=== PATIENT | female | born 1945 | race Caucasian/White ===

== ENCOUNTER → 2016-12-01 | Outpatient (CLI) | payer OTHER | LOC: CIMAGING 09:58 | DX: Z12.31 Encounter for screening mammogram for malignant neoplasm of breast (principal); Z80.3 Family history of malignant neoplasm of breast | CPT/HCPCS: G0202 ==

== ENCOUNTER → 2018-01-07 | Outpatient (CLI) | payer OTHER | LOC: CIMAGING 13:36 | PROVIDERS: ATTEND Family Medicine | DX: Z12.31 Encounter for screening mammogram for malignant neoplasm of breast (principal); Z80.3 Family history of malignant neoplasm of breast ==

== ENCOUNTER 2018-05-26 12:12 | Day surgery (SDC) | payer OTHER ==
[2018-05-26] MEDS ORDERED: ceFAZolin 2 GM/DEXTROSE 100 ML IV ONE (12:29)
[2018-05-26] MEDS ORDERED: LR 1,000 ML IV ONE (12:30)
[2018-05-26] MEDS ORDERED: BUPIVACAINE 0.5% 30 ML SDV ONE (13:41)
--- NOTE | 2018-05-26 13:54 | PDHPUP ---
History & Physical Update H&P update statement: This history and physical update is based on an assessment of the patient which was completed after admission or registration (within 24 hours), but prior to the surgery/procedure. H&P update: H&P reviewed & patient examined, no change in patient's condition since H&P completed
[2018-05-26] MEDS ORDERED: fentaNYL 100 MCG/2 ML INJ ONE ×2 (13:59→15:25)
[2018-05-26] MEDS ORDERED: PROPOFOL/EMULSION 500 MG/50 ML BOTTLE IV ONE (14:02)
[2018-05-26] MEDS ORDERED: LIDOCAINE 2% 2 ML INJ ONE (14:03)
[2018-05-26] MEDS ORDERED: MIDAZOLAM 2 MG/2 ML VIAL IVP ONE (14:05)
--- NOTE | 2018-05-26 14:05 | PDANEPAE ---
ANE History of Present Illness right foot bunion ANE Past Medical History - Cardiovascular History Hx Hypertension: No Hx Arrhythmias: No Hx Chest Pain: No Hx Coronary Artery / Peripheral Vascular Disease: No Hx CHF / Valvular Disease: No Hx Palpitations: No Cardiovascular History Comment: Hx of DVT & PE after knee surgery 12/2012. - Pulmonary History Hx COPD: No Hx Asthma/Reactive Airway Disease: Yes Hx Recent Upper Respiratory Infection: No Hx Oxygen in Use at Home: Yes O2 in Use at Home (L/minute): uses 1L with Cpap Hx Sleep Apnea: Yes Sleep Apnea Screening Result - Last Documented: Positive Pulmonary History Comment: asthma. CHERI positive, uses Cpap w/O2 - Neurologic History Hx Cerebrovascular Accident: No Hx Seizures: No Hx Dementia: No Neurologic History Comment: hx of left sided body, mid torso down to toes, numbness - no dx after testing, resolved slowly on it's own - Endocrine History Hx Diabetes: No - Renal History Hx Renal Disorders: No - Liver History Hx Hepatic Disorders: No - Neurological & Psychiatric Hx Hx Neurological and Psychiatric Disorders: Yes Neurological / Psychiatric History Comment: anxiety - Cancer History Hx Cancer: No - Congenital Disorder History Hx Congenital Disorders: No - GI History Hx Gastrointestinal Disorders: Yes Gastrointestinal History Comment: GERD - Other Health History Other Health History: bruises easily. wears glasses for reading - Chronic Pain History Chronic Pain: No - Surgical History Prior Surgeries: pilonidal cyst removal. . trigger thumb fixed, left. knee scope, left ANE Review of Systems Review of systems is: negative Review of Systems: - Exercise capacity METS (RN): 4 METS ANE Patient History - Allergies Allergies/Adverse Reactions: erythromycin base [Erythromycin Base] Allergy (Verified 05/11/18 12:21) GI upset iodine Allergy (Verified 05/11/18 12:21) hospitalized after injection for CT scan latex Allergy (Verified 05/11/18 12:21) rash, itching Sulfa (Sulfonamide Antibiotics) Allergy (Verified 05/11/18 12:21) nausea - Home Medications Home medications: home medication list seen and reviewed Home Medications: Budesonide 180 Mcg INH [Pulmicort 180Mcg Flexhaler] BID 01/18/13 [Last Taken ] Calcium Carb W/Vit D [Calcium Carb W/Vit D 500/200 (OTC)] DAILY 01/18/13 [Last Taken 1 Week Ago ~05/19/18] Citalopram [celeXA 20 MG (RX)] DAILY 01/18/13 [Last Taken 1 Week Ago ~05/19/18] Fexofenadine HCl [Cherise] DAILY 01/18/13 [Last Taken 2 Weeks Ago ~05/12/18] Fluticasone Nasal [Flonase Nasal [place] (RX)] DAILY 01/18/13 [Last Taken 05/25/18 ] Montelukast Sodium [Singulair 10 mg (RX)] DAILY@1800 01/18/13 [Last Taken ] Omeprazole [Prilosec 40 mg] DAILY 01/18/13 [Last Taken 05/25/18] Zolpidem Tartrate [Ambien 5MG (RX)] PRN 01/18/13 [Last Taken 1 Month Ago ~] Albuterol [Proventil Inhaler HFA (*)] PRN 05/11/18 [Last Taken 05/26/18] Aleve PRN 05/11/18 [Last Taken 2 Weeks Ago ~05/12/18] Biotin 05/11/18 [Last Taken 1 Week Ago ~05/19/18] Cinnamon 05/11/18 [Last Taken 1 Week Ago ~05/19/18] Glucosamine Chondroitin Caplet 05/11/18 [Last Taken 1 Week Ago ~05/19/18] Lutein 05/11/18 [Last Taken 1 Week Ago ~05/19/18] Probiotic 05/11/18 [Last Taken 1 Week Ago ~05/19/18] Resveratrol 05/11/18 [Last Taken 1 Week Ago ~05/19/18] Turmeric 05/11/18 [Last Taken 1 Week Ago ~05/19/18] Vitamin C 05/11/18 [Last Taken 1 Week Ago ~05/19/18] - NPO status NPO Since - Liquids (Date): 05/26/18 NPO Since - Liquids (Time): 10:45 NPO Since - Solids (Date): 05/25/18 NPO Since - Solids (Time): 18:00 - Anes Hx Anes Hx: no prior problems - Smoking Hx Smoking Status: Never smoked - Family Anes Hx Family Hx Anesthesia Complications: none ANE Labs/Vital Signs - Vital Signs Blood Pressure: 159/89 Heart Rate: 67 Respiratory Rate: 16 O2 Sat (%): 93 Height: 152.4 cm Weight: 78.925 kg ANE Physical Exam - Airway Neck exam: FROM Mallampati Score: Class 2 Mouth exam: normal dental/mouth exam - Pulmonary Pulmonary: no respiratory distress - Cardiovascular Cardiovascular: regular rate and rhythym - ASA Status ASA Status: III ANE Anesthesia Plan Anesthesia Plan: GA with mask
--- NOTE | 2018-05-26 14:11 | POSTANESTH ---
Post Anesthetic Evaluation Cardiovascular Status: Normal, Stable Respiratory Status: Normal, Stable Level of Consciousness/Mental Status: Can Participate in Eval, Mildly Sleepy, Arousable Pain Control: Adequate, Prn Tx Ordered Nausea/Vomiting Control: Adequate, Prn Tx Ordered Complications Possibly Related to Anesthesia: None Noted
[2018-05-26] MEDS ORDERED: ePHEDrine SULFATE 25 MG/5 ML SYR ONE (14:52)
[2018-05-26] MEDS ORDERED: PROPOFOL 200 MG/20 ML VIAL ONE ×2 (15:09→15:11)
[2018-05-26] MEDS ORDERED: PHENYLEPHRINE HCL 100 MCG/ML SYR ONE (15:11)
[2018-05-26] MEDS ORDERED: DEXAMETHASONE 4 MG/ML VIAL ONE (15:13)
[2018-05-26] MEDS ORDERED: KETOROLAC 30 MG/1 ML SDV ONE (15:44)
[2018-05-26] MEDS ORDERED: ONDANSETRON 4 MG/2 ML VIAL IVP PRN ×2 (15:48→16:06)
[2018-05-26] MEDS ORDERED: ALBUTEROL 3 ML DEYVIAL IH PRN (15:48)
[2018-05-26] MEDS ORDERED: LR 500 ML IV PRN (15:48)
[2018-05-26] MEDS ORDERED: HYDROmorphONE/DILAUDID 2 MG/ML INJ IVP PRN (15:48)
[2018-05-26] MEDS ORDERED: fentaNYL 100 MCG/2 ML INJ IVP PRN (15:48)
[2018-05-26] MEDS ORDERED: oxyCODONE IR 5 MG TAB PO PRN (15:48)
[2018-05-26] MEDS ORDERED: NALOXONE HCL 0.4 MG/ML INJ IVP PRN (15:48)
[2018-05-26] MEDS ORDERED: PROMETHAZINE HCL 25 MG/ML INJ IVP PRN (15:48)
[2018-05-26] MEDS ORDERED: HYDROCODONE/APAP 5/325 TAB PO PRN (15:48)
[2018-05-26] MEDS ORDERED: ACETAMINOPHEN 500 MG TAB PO PRN (15:48)
[2018-05-26] MEDS ORDERED: OXYCODONE/APAP 5/325 TAB PO PRN (16:06)
[2018-05-26] MEDS ORDERED: ONDANSETRON DISINTEGRATING 4 MG TAB PO PRN (16:06)
[2018-05-26 18:20] VITALS: BP 119/77
--- NOTE | 2018-05-27 14:09 | GOP ---
DATE OF OPERATION: 05/26/2018 SURGEON: Cipriano Barrios DPM HOUSING INSPECTOR: None. ANESTHESIA: MAC with local, 40 mL 0.5% Marcaine plain. PREOPERATIVE DIAGNOSIS: 1. Hallux valgus, right foot. 2. 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 4. Metatarsalgia, right foot. 5. Closed dislocation, 2nd metatarsophalangeal joint, right foot. 6. Hammertoe, 2nd digit, right foot. 7. Synovitis, right foot. POSTOPERATIVE DIAGNOSIS: 1. Hallux valgus, right foot. 2. 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 4. Metatarsalgia, right foot. 5. Closed dislocation, 2nd metatarsophalangeal joint, right foot. 6. Hammertoe, 2nd digit, right foot. 7. Synovitis, right foot. PROCEDURE PERFORMED: 1. Bunionectomy, right foot. 2. 1st metatarsal osteotomy with bone graft #2, right foot. 3. Osteotomy of 1st proximal phalanx, right foot. 4. 2nd metatarsal osteotomy, right foot. 5. Hammertoe fusion, 2nd toe, right foot. 6. Arthrocentesis, right foot. FINDINGS: Gross findings consistent with diagnosis. ESTIMATED BLOOD LOSS: Zero. DESCRIPTION OF PROCEDURE: After identification, the patient was brought to the operating room and pl aced on the operating table in the supine position. Following IV sedation, local anesthesia obtained around the patient's right foot utilizing a total of 30 mL 0.5% Marcaine plain. The foot was then s crubbed, prepped, and draped in the usual aseptic manner. A pneumatic ankle tourniquet was placed on the patient's right ankle with ample padding. An Esmarch bandage was utilized to exsanguinate the p atient's right foot and pneumatic ankle tourniquet was inflated. Attention was then directed to the medial aspect of the patient's right foot where a 5 cm linear long itudinal incision was made medial to the 1st metatarsophalangeal joint. This incision was deepened t hrough the subcutaneous tissue to the level of the joint capsule with care being taken to identify an d retract all vital neural and vascular structures. Bleeders were ligated and cauterized as necessar y. Lenticular capsulorrhaphy was performed at the medial aspect of the 1st metatarsophalangeal joint . This lenticular piece of capsule was excised in total and passed from the operative field. Capsul ar structures were reflected dorsally and plantarly, thus exposing the 1st metatarsophalangeal joint at the operative site. A McGlamry elevator was inserted from medial to lateral to within the 1st met atarsophalangeal joint and extended laterally to serve as a lateral ligamentous release. Upon comple tion of this maneuver, the hallux was more easily translated into a more medial and corrected position. Attention was then directed to the 1st metatarsal bone, right foot, where a hjhrpwc-obk-vrnizmt Z-sha ped Scarf osteotomy was performed in the head, neck, and shaft of the 1st metatarsal bone. This oste otomy was performed from medial to lateral with an osteotomy guide. Upon completion of this through- and-through osteotomy, the capital fragment was translated laterally into a more anatomically correct position. Following temporary fixation, 2 x 3.5 headless Arthrex screws were driven obliquely acros s the osteotomy site to serve as stable fixation. At this time, the fixation was evaluated and noted to be extremely stable. Redundant medial bone shelf was excised, remodeled, and replaced within the osteotomy site to serve as a bone graft. All rough edges were then smoothed with a bone bur. At this time, a decision was made to perform an osteotomy in the great toe secondary to malposition o f the great toe. Attention was directed to the base of the 1st proximal phalanx, right foot, through the original skin incision. A medially-based wedge osteotomy was performed in the base of the 1st p roximal phalanx leaving the lateral cortex intact. This wedge of bone was excised in total and passe d from the operative field. Osteotomy site was closed, translating the hallux into a more medial and anatomically correct position. A Nitinol staple was driven across the osteotomy site to serve as st able fixation. At this time, fixation was noted to be extremely stable at the 1st ray and position o f the 1st ray was noted to be anatomic. Incision was flushed with normal sterile saline solution. C apsular structures were reapproximated using 2-0 Vicryl. Subcutaneous tissue reapproximated using 3- 0 Vicryl, and skin reapproximated using 5-0 Vicryl in a running subcuticular suture technique. Attention was then directed to the dorsal aspect of the patient's right foot, where a 4 cm linear riley gitudinal incision was made beginning proximal to the 2nd metatarsophalangeal joint and then extendin g into the 2nd digit. This incision was deepened through the subcutaneous tissue with care being jett en to identify and retract all vital neural and vascular structures. Bleeders were ligated and caute rized as necessary. A linear capsulotomy was performed between the tendons of the extensor digitorum longus and extensor digitorum brevis. The extensor digitorum longus was Z-lengthened and reapproxim ated using 2-0 Vicryl. Capsular structures were reflected medially and laterally, thus exposing the 2nd metatarsophalangeal joint at the operative site. An oblique Didier osteotomy was performed in the head, neck, and shaft from dorsal distal to plantar proximal in the 2nd metatarsal bone. Upon comple tion of this osteotomy, capital fragment was translated proximally, thus exposing the 2nd metatarsoph alangeal joint plantar structures of the operative site. It was noted that the plantar plate structu re was at least 50% torn. Complete resection of the plantar plate was sharply performed exposing the flexor tendon apparatus and there was significant damage to the flexor tendons. These were directly repaired using 2-0 Vicryl. The flexor tendon structures, as well as the plantar plate, were then ga thered with a suture gathering instrument and a horizontal mattress was placed through both the flexo r tendons and plantar plate. These free ends of the tendon were then transferred distally through 2 crossing drill holes from plantar proximal to dorsal distal in the base of the 2nd proximal phalanx. The 2nd metatarsal was then brought back out to anatomic length, which was approximately 2 mm shorte r than it was at the beginning of surgery, and fixated with 2 x 2.0 snap-off screws. Position of the 2nd metatarsal was excellent and anatomic and fixation was stable. The sutures that had been passed through the flexor tendons and plantar plate were passed up through 2 crossing drill holes in the ba se of the proximal phalanx and pulled tight, which served as a repair of the plantar plate structure and transfer of both the plantar plate structure and flexor tendon apparatus to the base of the proxi mal phalanx. These sutures were tied upon themselves serving as stable fixation of these soft tissue structures. The 2nd digit and 2nd metatarsophalangeal joint were in anatomic position at this time. Attention was then directed through the original skin incision to the proximal interphalangeal joint of the 2nd digit. Using a sagittal saw, the head of the proximal phalanx and base of the middle phal anx were excised and passed from the operative field. A Trim-It Arthrex pin was driven from distal t o proximal into the proximal phalanx. This was cut approximately 5 mm proud and this distal portion of the pin was then secured into the middle phalanx. This served as stable fixation at the fusion si te. Position was excellent, fixation was stable. This entire incision was then flushed with normal sterile saline solution. Capsular ligamentous stru ctures were reapproximated using 2-0 Vicryl, subcutaneous tissue reapproximated using 3-0 Vicryl, and skin reapproximated using 5-0 Vicryl in a running subcuticular suture technique. Incision sites wer e then dressed with Steri-Strips, Aldana silk, 4 x 4 gauze, Webril, Yan, Shade bandage. 4 mg dexameth asone was injected into the right foot at the operative site at the conclusion of this procedure. Th e patient was transferred to the postoperative recovery area with vital signs stable and vascular sta tus intact to the right foot. Patient tolerated procedure and anesthesia well. SURGEON: Dr. Cipriano Barrios, ARIAS. HEMOSTASIS: Right pneumatic ankle tourniquet inflated to 250 mmHg for 72 minutes. MATERIALS: 3.5 Arthrex screws, CPR kit from Arthrex, Trim pin from Arthrex. INJECTABLES: 4 mg dexamethasone. CONDITION: Stable. /[id number]/MODL
== END 2018-05-26 17:58 | disposition home or self-care (01) ==
LOC: FSGY 12:12
PROVIDERS: ATTEND Podiatrist
PROC: 0QSQ04Z Reposition Right Toe Phalanx with Internal Fixation Device, Open Approach (ICD-10-PCS; 2018-05-26)
PROC: 0QSN04Z Reposition Right Metatarsal with Internal Fixation Device, Open Approach (ICD-10-PCS; 2018-05-26)
PROC: 0SGP04Z Fusion of Right Toe Phalangeal Joint with Internal Fixation Device, Open Approach (ICD-10-PCS; 2018-05-26)
PROC: 0QSN04Z Reposition Right Metatarsal with Internal Fixation Device, Open Approach (ICD-10-PCS; principal; 2018-05-26 13:45)
DX: M20.11 Hallux valgus (acquired), right foot (principal); Q66.21 Congenital metatarsus primus varus; S93.124A Dislocation of metatarsophalangeal joint of right lesser toe(s), initial encounter; M20.41 Other hammer toe(s) (acquired), right foot; M65.9 Synovitis and tenosynovitis, unspecified; G47.33 Obstructive sleep apnea (adult) (pediatric); J45.909 Unspecified asthma, uncomplicated; E66.9 Obesity, unspecified; K21.9 Gastro-esophageal reflux disease without esophagitis; Z86.718 Personal history of other venous thrombosis and embolism; Z86.711 Personal history of pulmonary embolism; X58.XXXA Exposure to other specified factors, initial encounter
CPT/HCPCS: C1713; J0690; J1100; J1885; J2250; J2370; J2704; J3010

== ENCOUNTER → 2018-08-12 | Outpatient (CLI) | payer OTHER | LOC: FIMAGING 15:50 | PROVIDERS: ATTEND Orthopaedic Surgery | DX: M17.11 Unilateral primary osteoarthritis, right knee (principal) ==

== ENCOUNTER 2018-08-25 06:49 | Observation (INO) | payer OTHER ==
[~2018-08-25 06:49] MED LIST: ROPIVACAINE 0.2% 80 MG, EPINEPHrine 0.2 MG, KETOROLAC TROMETHAMINE 30 MG in SYRINGE 0 ML IU ONE; TRANEXAMIC ACID 3,000 MG in NS (SYRINGE) 50 ML IRR ONE
[2018-08-25] MEDS ORDERED: TRANEXAMIC ACID 3,000 MG/50 ML BAG IRR ONE (06:52)
[2018-08-25] MEDS ORDERED: FAMOTIDINE 20 MG TAB PO ONE (07:08)
[2018-08-25] MEDS ORDERED: ceFAZolin 2 GM/DEXTROSE 100 ML IV ONE (07:08)
[2018-08-25] MEDS ORDERED: DEXAMETHASONE 4 MG/ML VIAL IVP ONE (07:08)
[2018-08-25] MEDS ORDERED: ACETAMINOPHEN 325 MG TAB PO ONE (07:08)
[2018-08-25] MEDS ORDERED: LIDOCAINE 1% 2 ML INJ ID PRN (07:11)
[2018-08-25] MEDS ORDERED: LR 1,000 ML IV ONE (07:11)
[2018-08-25] MEDS ORDERED: MIDAZOLAM 2 MG/2 ML VIAL IVP ONE (08:58)
[2018-08-25] MEDS ORDERED: MIDAZOLAM 2 MG/2 ML VIAL ONE (09:00)
--- NOTE | 2018-08-25 09:03 | PDANEPAE ---
ANE History of Present Illness 73 yo with right knee arthritis ANE Past Medical History - Cardiovascular History Hx Hypertension: No Hx Arrhythmias: No Hx Chest Pain: No Hx Coronary Artery / Peripheral Vascular Disease: No Hx CHF / Valvular Disease: No Hx Palpitations: No Cardiovascular History Comment: Hx of DVT & PE after knee surgery 12/2012. - Pulmonary History Hx COPD: No Hx Asthma/Reactive Airway Disease: Yes Hx Recent Upper Respiratory Infection: No Hx Oxygen in Use at Home: Yes O2 in Use at Home (L/minute): 1 Hx Sleep Apnea: Yes Sleep Apnea Screening Result - Last Documented: Positive Pulmonary History Comment: asthma. CHERI positive, uses Cpap w/O2 - Neurologic History Hx Cerebrovascular Accident: No Hx Seizures: No Hx Dementia: No Neurologic History Comment: hx of left sided body, mid torso down to toes, numbness - no dx after testing, resolved slowly on it's own - Endocrine History Hx Diabetes: No Endocrine History Comment: PRIOR THYROID ISSUES - Renal History Hx Renal Disorders: No - Liver History Hx Hepatic Disorders: No - Neurological & Psychiatric Hx Hx Neurological and Psychiatric Disorders: Yes Neurological / Psychiatric History Comment: anxiety - Cancer History Hx Cancer: No - Congenital Disorder History Hx Congenital Disorders: No - GI History Hx Gastrointestinal Disorders: Yes Gastrointestinal History Comment: GERD - Other Health History Other Health History: bruises easily. wears glasses for reading - Chronic Pain History Chronic Pain: No - Surgical History Prior Surgeries: pilonidal cyst removal. . trigger thumb fixed, left. knee scope, left ANE Review of Systems Review of systems is: negative Review of Systems: - Exercise capacity METS (RN): 4 METS ANE Patient History - Allergies Allergies/Adverse Reactions: erythromycin base [Erythromycin Base] Allergy (Verified 08/25/18 07:10) GI upset iodine Allergy (Verified 08/25/18 07:19) hospitalized after injection for CT scan latex Allergy (Verified 08/25/18 07:10) rash, itching Sulfa (Sulfonamide Antibiotics) Allergy (Verified 08/25/18 07:10) nausea - Home Medications Home medications: home medication list seen and reviewed (2 / week) Home Medications: Budesonide 180 Mcg INH [Pulmicort 180Mcg Flexhaler] IH BID 01/18/13 [Last Taken 08/25/18 05:50] Citalopram [celeXA 20 MG (RX)] PO HS 01/18/13 [Last Taken 08/24/18] Fexofenadine HCl [Cherise] PO DAILY 01/18/13 [Last Taken 08/11/18] Fluticasone Nasal [Flonase Nasal [place] (RX)] BID 01/18/13 [Last Taken 08/25/18 05:50] Montelukast Sodium [Singulair 10 mg (RX)] IH DAILY@1800 01/18/13 [Last Taken 06/30] Omeprazole [Prilosec 40 mg] PO DAILY 01/18/13 [Last Taken 08/25/18 05:30] Zolpidem Tartrate [Ambien 5MG (RX)] PO PRN 01/18/13 [Last Taken 08/11/18] Albuterol [Proventil Inhaler HFA (*)] IH PRN 05/11/18 [Last Taken 05/26/18] Aleve PO PRN 05/11/18 [Last Taken 08/11/18] - NPO status NPO Since - Liquids (Date): 08/25/18 NPO Since - Liquids (Time): 05:45 NPO Since - Solids (Date): 08/24/18 NPO Since - Solids (Time): 20:30 - Smoking Hx Smoking Status: Never smoked - Family Anes Hx Family Hx Anesthesia Complications: none ANE Labs/Vital Signs - Vital Signs Blood Pressure: 139/96 Heart Rate: 67 Respiratory Rate: 16 O2 Sat (%): 94 Height: 165.1 cm Weight: 78.925 kg ANE Physical Exam - Airway Neck exam: FROM Mallampati Score: Class 2 Mouth exam: normal dental/mouth exam - Pulmonary Pulmonary: no respiratory distress - Cardiovascular Cardiovascular: regular rate and rhythym - ASA Status ASA Status: II ANE Anesthesia Plan Anesthesia Plan: spinal Regional Anesthesia: adductor canal FNB
[2018-08-25] MEDS ORDERED: PROPOFOL/EMULSION 500 MG/50 ML BOTTLE IV ONE (09:11)
[2018-08-25] MEDS ORDERED: fentaNYL 100 MCG/2 ML INJ ONE (09:11)
[2018-08-25] MEDS ORDERED: LACTULOSE 20 GM/30 ML UDCUP PO PRN (10:43)
[2018-08-25] MEDS ORDERED: TEMAZEPAM 15 MG CAP PO PRN (10:43)
[2018-08-25] MEDS ORDERED: PROMETHAZINE HCL 25 MG SUPPR PR PRN (10:43)
[2018-08-25] MEDS ORDERED: DIPHENOXYLATE/ATROPINE LOMOTIL 1 TAB PO PRN (10:43)
[2018-08-25] MEDS ORDERED: BISACODYL 10 MG SUPP PR PRN (10:43)
[2018-08-25] MEDS ORDERED: PROMETHAZINE HCL 25 MG/ML INJ IVP PRN ×2 (10:43→10:46)
[2018-08-25] MEDS ORDERED: oxyCODONE IR 5 MG TAB PO PRN (10:43)
[2018-08-25] MEDS ORDERED: diphenhydrAMINE 25 MG CAP PO PRN (10:43)
[2018-08-25] MEDS ORDERED: ONDANSETRON 4 MG/2 ML VIAL IVP PRN ×2 (10:43→10:46)
[2018-08-25] MEDS ORDERED: POLYETHYLENE GLYCOL 3350 17 GM PKT PO PRN (10:43)
[2018-08-25] MEDS ORDERED: ONDANSETRON DISINTEGRATING 4 MG TAB PO PRN (10:43)
[2018-08-25] MEDS ORDERED: METOCLOPRAMIDE 10 MG/2 ML VIAL IVP PRN (10:43)
[2018-08-25] MEDS ORDERED: MAGNESIUM HYDROXIDE 30 ML UDCUP PO PRN (10:43)
--- NOTE | 2018-08-25 10:43 | POSTOPPROG ---
Post Op Note Date of Operation: 08/25/18 Surgeon: Raymond Younger Eligibility And Occupancy Interviewer: clementina younger PA-C and Cris Neff PA-C Anesthesiologist: Warm Anesthesia: Spinal, Other (Specify) (adductor canal block) Pre-op Diagnosis: right knee OA Post-op Diagnosis: same Indication: right knee pain Procedure: R TKA robot assisted Findings: severe knee OA Inf/Abcess present in the surg proc area at time of surgery?: No EBL: 50-100
[2018-08-25] MEDS ORDERED: fentaNYL 100 MCG/2 ML INJ IVP PRN (10:46)
[2018-08-25] MEDS ORDERED: NALOXONE HCL 0.4 MG/ML INJ IVP PRN (10:46)
--- NOTE | 2018-08-25 10:47 | POSTANESTH ---
Post Anesthetic Evaluation Cardiovascular Status: Normal, Stable Respiratory Status: Normal, Stable Level of Consciousness/Mental Status: Can Participate in Eval Pain Control: Adequate, Prn Tx Ordered Nausea/Vomiting Control: Adequate, Prn Tx Ordered Complications Possibly Related to Anesthesia: None Noted
[2018-08-25] MEDS ORDERED: LR 1,000 ML IV SCH (11:00)
[2018-08-25] MEDS ORDERED: ACETAMINOPHEN 325 MG TAB ONE (11:27)
[2018-08-25] MEDS: ACETAMINOPHEN 325 MG TAB PO SCH ×3 (11:28→23:31)
[2018-08-25] MEDS ORDERED: ALBUTEROL 60 PUFFS/8 GM MDI IH PRN (14:19)
[2018-08-25] MEDS: ceFAZolin 2 GM/DEXTROSE 100 ML IV SCH ×2 (15:27→23:30)
[2018-08-25] MEDS: CYCLOBENZAPRINE 10 MG TAB PO PRN (15:35)
[2018-08-25] MEDS ORDERED: WARFARIN SODIUM 5 MG TAB PO ONE (16:00)
[2018-08-25] MEDS: SENNOSIDES/DOCUSATE SODIUM TAB PO SCH (20:15)
[2018-08-25] MEDS: FAMOTIDINE 20 MG TAB PO SCH (20:16)
[2018-08-25] MEDS: FLUTICASONE HFA 220 MCG MDI IH SCH (20:37)
[2018-08-25] MEDS ORDERED: CITALOPRAM 20 MG TAB PO SCH (21:00)
[2018-08-25] MEDS: FLUTICASONE NASAL 120 SPRAYS/16 GM MDI EACHNARE SCH (23:38)
[2018-08-26] MEDS: CYCLOBENZAPRINE 10 MG TAB PO PRN (04:11)
[2018-08-26 05:54] LABS: INR 1.03 (0.83-1.16); PROTIME(PATIENT) 13.7 SEC (12.0-15.0)
[2018-08-26] MEDS: ACETAMINOPHEN 325 MG TAB PO SCH (06:11)
[2018-08-26] MEDS ORDERED: ENOXAPARIN 40 MG/0.4 ML SYR SC SCH (09:00)
[2018-08-26] MEDS: FLUTICASONE HFA 220 MCG MDI IH SCH (09:27)
[2018-08-26] MEDS: FLUTICASONE NASAL 120 SPRAYS/16 GM MDI EACHNARE SCH (09:27)
[2018-08-26] MEDS: SENNOSIDES/DOCUSATE SODIUM TAB PO SCH (10:04)
[2018-08-26] MEDS: FAMOTIDINE 20 MG TAB PO SCH (10:04)
[2018-08-26 10:34] VITALS: BP 140/63
--- NOTE | 2018-08-26 11:14 | ASMTLACE ---
MARIANE Length of stay for Answers: 2 days current admission Acuity / Level of Answers: No Care: Did the patient have an inpatient admission? Comorbidities - select Answers: Other Notes: Hx of DVT and PE all that apply # of Emergency department Answers: 0 visits in the last 6 months Social determinants Answers: Mental health diagnosis (anxiety, depression, pers onality disorders, etc.) Score: 6 Date Signed: 08/26/2018 11:14 AM Electronically Signed By:MARVIN Mistry
--- NOTE | 2018-08-26 13:15 | SOAPPROG ---
SOAP Progress Note Assessment/Plan: Assessment: Patient is doing well POD 1 s/p R TKA Pain management: pain is well controlled on oral pain meds. VTE ppx: recommend coumadin and lovenox, cont POLI and SCDs Anemia: level is expected initially postop. Asymptomatic. Continue to monitor D/c planning: Patient has done better than anticipated and would like to be discharged to home today. Patient must be released from PT before discharge to home. Plan: 08/26/18 13:14 Subjective: patient is doing well today, denies SOB, chest pain and n/V Objective: Vital Signs Temp Pulse Resp BP Pulse Ox 36.6 C 60 16 140/63 H 94 08/26/18 07:50 08/26/18 07:50 08/26/18 07:50 08/26/18 08:00 08/26/18 08:31 Laboratory Results 08/26/18 04:34 08/25/18 08/26/18 08/27/18 05:59 05:59 05:59 Intake Total 4323 Output Total 2300 400 Balance 2022 -400 PT 13.7 SEC (12.0-15.0) 08/26/18 04:34 INR 1.03 (0.83-1.16) 08/26/18 04:34 RLE: incision dressing is clean and dry, NVI, +pf/df ICD10 Worksheet Patient Problems: Problems Problem Status Onset Primary localized osteoarthritis of right knee Acute
--- NOTE | 2018-08-26 17:18 | GDS ---
[f rep st] DISCHARGE SUMMARY ADMISSION DIAGNOSIS: Right knee osteoarthritis. DISCHARGE DIAGNOSES: Right knee osteoarthritis. PROCEDURE: Right total knee arthroplasty, robot assisted. VTE PROPHYLAXIS: Recommend Coumadin with Lovenox bridge. BRIEF DESCRIPTION OF HOSPITAL STAY: Patient was admitted for an elective joint arthroplasty. The pa kermitnt tolerated the procedure well and has passed physical therapy. The patient was given appropriat e antibiotic prophylaxis and venous thromboembolism prophylaxis. The patient's pain was well control led on oral pain medication. Patient was holding down food, and had urinated. Decision was made to discharge the patient. The patient was given post-operative prescriptions pre-operatively. PLAN: Followup planned with Dr. Hoffman's office on September 13 at 11 a.m. /[id number]/MODL
--- NOTE | 2018-08-26 19:44 | GOP ---
[f rep st] OPERATIVE REPORT DATE OF OPERATION: 08/25/2018 SURGEON: Lucas Hoffman MD [place] ACCOUNTANT: ARCADIO Telles PA ANESTHESIA: Spinal. PREOPERATIVE DIAGNOSIS: Right knee osteoarthritis. POSTOPERATIVE DIAGNOSIS: Right knee osteoarthritis. PROCEDURE PERFORMED: Right total knee arthroplasty with computer navigation, robotic assist. FINDINGS: ESTIMATED BLOOD LOSS: INDICATIONS: The patient is a 73-year-old female with severe and progressive pain and deformity of the right knee unresponsive to conservative care. The risks and benefits of surgical intervention were explained in detail. DESCRIPTION OF PROCEDURE: The patient was brought to the operative room and placed on the table in the supine position. Spinal anesthesia was induced without difficulty. A pneumatic tourniquet was applied about the right proximal thigh, and the leg was prepped and draped in a sterile fashion. The leg diaz was applied. After exsanguination by elevation the tourniquet was inflated to 250 mmHg. Incision was made anterior medial from the tibial tuberosity to a point 2_ cm proximal to the superior pole of the patella. Medial parapatellar arthrotomy was carried out from the superior pole of the patella and posteriorly in line with the fibers of the Type II VMO. The medial collateral ligament was elevated and the infrapatellar fat pad was resected. The patella was everted and the articular surface was excised. An 32 mm patellar button was placed. Attention was turned first to the distal aspect of the femur. After exposure of the femur, 2 half pins were placed for fixation of the femoral array. In a similar fashion, 2 pins were placed anteromedial on the tibia for fixation of the tibial array. External land marking and registration of the hip center was performed without difficulty. Internal femoral and tibial registration was carried out without difficulty and the femoral and tibial checkpoints were placed and verified for accuracy. Attention was turned to the femur. The foot print for the size 3 femoral component was cut with the saw using the [employer] robotic system and verified for accuracy against the CT based plan. In a similar fashion, the saw was used to cut the footprint for the size 4 tibial component using the [employer] system and verified for accuracy against the CT based plan. The tibial articular surface was excised without difficulty, followed by the intercondylar box cut. The knee was extended and the remnants of the medial and lateral meniscus were excised. The posterior capsule was injected with ropivacaine, epinephrine and Toradol. A size4 tibial tray was positioned. Trial reduction was then carried out. There was excellent range of motion, alignment, and stability using the 4 x 9 mm polyethylene. All trials were then removed. The joint was thoroughly irrigated and carefully dried. The press-fit components were implanted. The permanent 4x9 mm polyethylene was placed without difficulty. The tourniquet was deflated and all bleeders were coagulated. The wound was thoroughly irrigated and closed using interrupted sutures of 2-0 Vicryl for the joint capsule. The subcu was closed with 3-0 Vicryl and the skin with 4-0 Monocryl. Dermabond and Steri-Strips were applied followed by a compressive dressing. The patient was then moved from the operating room to the recovery room in good condition, having tolerated the procedure well. /[id number]/MODL MTDD
== END 2018-08-26 11:10 | disposition home or self-care (01) ==
LOC: F3N 06:49 → EDSTATUS 09:00 → F3N 12:22
PROVIDERS: ADMIT Orthopaedic Surgery; ATTEND Orthopaedic Surgery
PROC: 0SRC0JZ Replacement of Right Knee Joint with Synthetic Substitute, Open Approach (ICD-10-PCS; principal; 2018-08-25 09:00)
DX: M17.11 Unilateral primary osteoarthritis, right knee (principal)
CPT/HCPCS: 27447; 73560; 88311; 97110; 97116; 97161; C1776; G0378; J0171; J0690; J1100; J1650; J1885; J2250; J2704; J2795; J3010

== ENCOUNTER → 2018-11-02 | Outpatient (CLI) | payer OTHER | LOC: FIMAGING 11:47 | PROVIDERS: ATTEND Orthopaedic Surgery | DX: Z01.818 Encounter for other preprocedural examination (principal); M17.12 Unilateral primary osteoarthritis, left knee ==

== ENCOUNTER 2018-11-17 07:56 | Observation (INO) | payer OTHER ==
[2018-11-17] MEDS ORDERED: ACETAMINOPHEN 325 MG TAB PO ONE (08:21)
[2018-11-17] MEDS ORDERED: ceFAZolin 2 GM/DEXTROSE 100 ML IV ONE (08:21)
[2018-11-17] MEDS ORDERED: FAMOTIDINE 20 MG TAB PO ONE (08:21)
[2018-11-17] MEDS ORDERED: DEXAMETHASONE 4 MG/ML VIAL IVP ONE (08:21)
[2018-11-17] MEDS ORDERED: TRANEXAMIC ACID 3,000 MG/50 ML BAG IRR ONE (08:45)
[2018-11-17] MEDS ORDERED: LR 1,000 ML IV ONE (08:54)
[2018-11-17] MEDS ORDERED: MIDAZOLAM 2 MG/2 ML VIAL IVP ONE (10:03)
[2018-11-17] MEDS ORDERED: MIDAZOLAM 2 MG/2 ML VIAL ONE (10:05)
--- NOTE | 2018-11-17 10:06 | PDANEPAE ---
ANE History of Present Illness 73 left knee arthritis ANE Past Medical History - Cardiovascular History Hx Hypertension: No Hx Arrhythmias: No Hx Chest Pain: No Hx Coronary Artery / Peripheral Vascular Disease: No Hx CHF / Valvular Disease: No Hx Palpitations: No Cardiovascular History Comment: Hx of DVT & PE after knee surgery 12/2012. - Pulmonary History Hx COPD: No Hx Asthma/Reactive Airway Disease: Yes Hx Recent Upper Respiratory Infection: No Hx Oxygen in Use at Home: Yes O2 in Use at Home (L/minute): NOC O2 1L Hx Sleep Apnea: Yes Sleep Apnea Screening Result - Last Documented: Positive Pulmonary History Comment: asthma. CHERI positive, uses Cpap w/O2 - Neurologic History Hx Cerebrovascular Accident: No Hx Seizures: No Hx Dementia: No Neurologic History Comment: hx of left sided body, mid torso down to toes, numbness - no dx after testing, resolved slowly on it's own - Endocrine History Hx Diabetes: No Endocrine History Comment: PRIOR THYROID ISSUES - Renal History Hx Renal Disorders: No - Liver History Hx Hepatic Disorders: No - Neurological & Psychiatric Hx Hx Neurological and Psychiatric Disorders: Yes Neurological / Psychiatric History Comment: anxiety - Cancer History Hx Cancer: No - Congenital Disorder History Hx Congenital Disorders: No - GI History Hx Gastrointestinal Disorders: Yes Gastrointestinal History Comment: GERD - Other Health History Other Health History: bruises easily. wears glasses for reading - Chronic Pain History Chronic Pain: No - Surgical History Prior Surgeries: pilonidal cyst removal. . trigger thumb fixed, left. knee scope, left ANE Review of Systems Review of systems is: negative Review of Systems: - Exercise capacity METS (RN): 5 METS ANE Patient History - Allergies Allergies/Adverse Reactions: erythromycin base [Erythromycin Base] Allergy (Verified 11/17/18 08:25) GI upset iodine Allergy (Verified 11/17/18 08:25) hospitalized after injection for CT scan latex Allergy (Verified 11/17/18 08:25) rash, itching Sulfa (Sulfonamide Antibiotics) Allergy (Verified 11/17/18 08:25) nausea - Home Medications Home medications: home medication list seen and reviewed Home Medications: Citalopram [celeXA 20 MG (RX)] 20 mg PO HS 01/18/13 [Last Taken 11/16/18 22:30] Fluticasone Nasal [Flonase Nasal Randolph] 1 spray EACHNARE BID 07/09/13 [Last Taken 11/17/18] Montelukast Sodium [Singulair 10 mg (*)] 10 mg IH HS 01/18/13 [Last Taken 22:30] Omeprazole [Prilosec 40 mg] 40 mg PO DAILY 01/18/13 [Last Taken 11/17/18 06:40] Zolpidem Tartrate [Ambien 5MG (*)] 5 mg PO HS PRN 01/18/13 [Last Taken 11/16/18 22:30] Acetaminophen [Tylenol ES 500 mg (*)] 500 mg PO TID 10/25/18 [Last Taken ] Budesonide 180 Mcg INH [Pulmicort 180Mcg Flexhaler (*)] 1 puffs IH DAILY [Last Taken 11/16/18] Naproxen Sodium [Aleve 220 MG (*)] 220 mg PO BID PRN 11/01/18 [Last Taken 2 Weeks Ago ~11/03/18] - NPO status NPO Since - Liquids (Date): 11/17/18 NPO Since - Liquids (Time): 06:45 NPO Since - Solids (Date): 11/16/18 NPO Since - Solids (Time): 21:00 - Smoking Hx Smoking Status: Never smoked - Family Anes Hx Family Hx Anesthesia Complications: none ANE Labs/Vital Signs - Vital Signs Blood Pressure: 167/106 Heart Rate: 75 Respiratory Rate: 17 O2 Sat (%): 92 Height: 152.4 cm Weight: 79.379 kg ANE Physical Exam - Airway Neck exam: FROM Mallampati Score: Class 2 Mouth exam: normal dental/mouth exam - Pulmonary Pulmonary: no respiratory distress - Cardiovascular Cardiovascular: regular rate and rhythym - ASA Status ASA Status: II ANE Anesthesia Plan Anesthesia Plan: spinal Regional Anesthesia: adductor canal FNB
[2018-11-17] MEDS ORDERED: PROPOFOL/EMULSION 500 MG/50 ML BOTTLE IV ONE (10:21)
[2018-11-17] MEDS ORDERED: fentaNYL 100 MCG/2 ML INJ ONE (10:21)
[2018-11-17] MEDS ORDERED: fentaNYL 100 MCG/2 ML INJ IVP PRN (11:48)
[2018-11-17] MEDS ORDERED: PROMETHAZINE HCL 25 MG/ML INJ IVP PRN ×2 (11:48→11:57)
[2018-11-17] MEDS ORDERED: NALOXONE HCL 0.4 MG/ML INJ IVP PRN (11:48)
[2018-11-17] MEDS ORDERED: ONDANSETRON 4 MG/2 ML VIAL IVP PRN ×2 (11:48→11:57)
[2018-11-17] MEDS ORDERED: oxyCODONE IR 5 MG TAB PO PRN (11:57)
[2018-11-17] MEDS ORDERED: TEMAZEPAM 15 MG CAP PO PRN (11:57)
[2018-11-17] MEDS ORDERED: CYCLOBENZAPRINE 10 MG TAB PO PRN (11:57)
[2018-11-17] MEDS ORDERED: PROMETHAZINE HCL 25 MG SUPPR PR PRN (11:57)
[2018-11-17] MEDS ORDERED: BISACODYL 10 MG SUPP PR PRN (11:57)
[2018-11-17] MEDS ORDERED: DIPHENOXYLATE/ATROPINE LOMOTIL 1 TAB PO PRN (11:57)
[2018-11-17] MEDS ORDERED: POLYETHYLENE GLYCOL 3350 17 GM PKT PO PRN (11:57)
[2018-11-17] MEDS ORDERED: MAGNESIUM HYDROXIDE 30 ML UDCUP PO PRN (11:57)
[2018-11-17] MEDS ORDERED: ONDANSETRON DISINTEGRATING 4 MG TAB PO PRN (11:57)
[2018-11-17] MEDS ORDERED: diphenhydrAMINE 25 MG CAP PO PRN (11:57)
[2018-11-17] MEDS ORDERED: METOCLOPRAMIDE 10 MG/2 ML VIAL IVP PRN (11:57)
[2018-11-17] MEDS ORDERED: LACTULOSE 20 GM/30 ML UDCUP PO PRN (11:57)
--- NOTE | 2018-11-17 11:57 | POSTOPPROG ---
Post Op Note Date of Operation: 11/17/18 Surgeon: Raymond Hoffman Clinical Trial Assistant: Luz Neff PAC Anesthesiologist: Dr. Villegas Warm Anesthesia: Spinal, Other (Specify) (adductor canal block) Pre-op Diagnosis: left knee OA Post-op Diagnosis: same Indication: left knee pain Procedure: LTKA, robot assisted Findings: severe OA of left knee Inf/Abcess present in the surg proc area at time of surgery?: No EBL: 500-1000
[2018-11-17] MEDS ORDERED: ZOLPIDEM TARTRATE 5 MG TAB PO PRN (11:59)
[2018-11-17] MEDS ORDERED: LR 1,000 ML IV SCH (12:00)
--- NOTE | 2018-11-17 15:46 | SOAPPROG ---
SOAP Progress Note Assessment/Plan: Assessment: 73 year old female s/p left TKA, CORBY assist- procedure earlier today Doing well, pain tolerable at this time History of DVT/PE after arthroscopy Plan: Begin d/c planning - likely going to home tomorrow. Will have support of her . She had right TKA with Dr. Hoffman about 12 weeks ago and did very well. She is familiar with the recovery process. Continue oral pain medication - oxycodone, Tylenol, celebrex, flexeril Continue VTE ppx - Lovenox 40 mg once daily x 4 days, Coumadin 5 mg x 3 weeks, SCDs, POLI myers; patient will have INR checks every Thursday and for 3 weeks starting the Thursday after discharge Continue PT efforts - WBAT, ROM but limit knee flexion to < 90 degrees until POD 5-7. Subjective: Patient states she is doing very well, pain is minimal at this time. She was able to work with PT and walked without significant difficulty. She has outpatient scheduled to start at the end of next week. She plans to go home tomorrow and will have the support of her . She denies SOB, CP, fever, chills. Objective: Vital Signs Temp Pulse Resp BP Pulse Ox 36.6 C 78 17 140/84 H 93 11/17/18 15:27 11/17/18 15:27 11/17/18 15:27 11/17/18 15:27 11/17/18 15:27 Patient resting in bed, no acute distress. Her is present in the room. She is tolerating the Zero Knee. LLE: Wound dressings clean, dry and intact. Lower leg compartments are soft and nontender. Patient can actively DF and PF left foot and great toe against resistance. Grossly NVI distally. ICD10 Worksheet Patient Problems: Problems Problem Status Onset Unilateral primary osteoarthritis, left knee Acute Primary localized osteoarthritis of right knee Acute
[2018-11-17] MEDS ORDERED: WARFARIN SODIUM 5 MG TAB PO SCH (16:00)
[2018-11-17] MEDS ORDERED: ALBUTEROL 60 PUFFS/8 GM MDI IH PRN (17:06)
[2018-11-17] MEDS: ACETAMINOPHEN 325 MG TAB PO SCH (18:20)
[2018-11-17] MEDS: ceFAZolin 2 GM/DEXTROSE 100 ML IV SCH (18:20)
[2018-11-17] MEDS: FAMOTIDINE 20 MG TAB PO SCH (20:37)
[2018-11-17] MEDS: SENNOSIDES/DOCUSATE SODIUM TAB PO SCH (20:39)
[2018-11-17] MEDS ORDERED: CITALOPRAM 20 MG TAB PO SCH (21:00)
[2018-11-17] MEDS ORDERED: MONTELUKAST SODIUM 10 MG TAB PO SCH (21:00)
[2018-11-17] MEDS: FLUTICASONE NASAL 120 SPRAYS/16 GM MDI EACHNARE SCH ×2 (21:44→22:37)
[2018-11-17] MEDS: FLUTICASONE HFA 220 MCG MDI IH SCH (21:45)
[2018-11-18] MEDS: ACETAMINOPHEN 325 MG TAB PO SCH ×3 (00:35→11:14)
[2018-11-18] MEDS: ceFAZolin 2 GM/DEXTROSE 100 ML IV SCH (02:01)
[2018-11-18 06:11] LABS: INR 0.98 (0.83-1.16); PROTIME(PATIENT) 12.6 SEC (12.0-15.0)
[2018-11-18 07:41] VITALS: BP 132/93
[2018-11-18] MEDS: FLUTICASONE HFA 220 MCG MDI IH SCH (08:03)
[2018-11-18] MEDS: FAMOTIDINE 20 MG TAB PO SCH (08:36)
[2018-11-18] MEDS: SENNOSIDES/DOCUSATE SODIUM TAB PO SCH (08:37)
[2018-11-18] MEDS: FLUTICASONE NASAL 120 SPRAYS/16 GM MDI EACHNARE SCH (08:39)
--- NOTE | 2018-11-18 08:56 | SOAPPROG ---
SOAP Progress Note Assessment/Plan: Assessment: 73 year old female s/p left TKA, CORBY assist- POD 1 Doing well, pain tolerable at this time, doing better than expected History of DVT/PE after arthroscopy Anemia - expected initially post-op, asymptomatic, continue to monitor Plan: Continue d/c planning - going to home today. Will have support of her . She had right TKA with Dr. Hoffman about 12 weeks ago and did very well. She is familiar with the recovery process. Continue oral pain medication - oxycodone, Tylenol, celebrex Continue VTE ppx - Lovenox 40 mg once daily x 4 days, Coumadin 5 mg x 3 weeks, SCDs in hospital, POLI hose x 2 weeks; patient will have INR checks every Thursday and for 3 weeks starting the Thursday after discharge Continue PT efforts - WBAT, ROM but limit knee flexion to < 90 degrees until POD 5-7. Subjective: Patient states she is doing very well, she has been able to get up and walk about her room and the halls without significant difficulty. She feels well enough to go home today. She denies SOB, CP, fever, chills. Objective: Vital Signs Temp Pulse Resp BP Pulse Ox 36.6 C 72 14 132/93 H 95 11/18/18 07:40 11/18/18 08:08 11/18/18 08:08 11/18/18 07:40 11/18/18 08:08 Laboratory Results 11/18/18 05:12 11/17/18 11/18/18 11/19/18 05:59 05:59 05:59 Intake Total 725 Output Total 1650 Balance -925 PT 12.6 SEC (12.0-15.0) 11/18/18 05:12 INR 0.98 (0.83-1.16) 11/18/18 05:12 Patient was walking out of the bathroom as we entered the room. She did not appear to have significant pain or difficulty with ambulation. No acute distress. LLE: Wound dressings clean, dry and intact. POLI hose in place. Lower leg compartments are soft and nontender. Patient can actively DF and PF left foot and great toe against resistance. Grossly NVI distally. ICD10 Worksheet Patient Problems: Problems Problem Status Onset Unilateral primary osteoarthritis, left knee Acute Primary localized osteoarthritis of right knee Acute
[2018-11-18] MEDS ORDERED: ENOXAPARIN 40 MG/0.4 ML SYR SC SCH (09:00)
[2018-11-18] MEDS ORDERED: BUDESONIDE 180 MCG MDI IH SCH (09:00)
--- NOTE | 2018-11-18 09:00 | PDDCSUM ---
Discharge Summary Discharge Summary: ADMISSION DIAGNOSIS: Left knee severe degenerative arthritis DISCHARGE DIAGNOSIS: Left knee severe degenerative arthritis OPERATION PERFORMED: November 17, 2018 Left total knee arthroplasty, Azael robot assisted. POSTOPERATIVE COMPLICATIONS: None CONDITION ON DISCHARGE: Improved HPI: The patient is a 73 year old female who has end-stage arthritis of her left knee. Clinical and radiographic features are consistent with this. Patient has failed attempts at conservative management, therefore, recommended operative left total knee replacement. She had right total knee arthroplasty approximately [address] Hoffman and she had great results. Patient has a history of DVT/PE after arthroscopy. Lovenox and Coumadin recommended for VTE prophylaxis after left total knee arthroplasty. DESCRIPTION OF HOSPITAL COURSE: The patient was admitted to the hospital on the morning of surgery and underwent a left total knee arthroplasty, Azael robot assisted. Postoperatively, patient was treated with multimodal DVT prophylaxis, including POLI hose, SCDs and lovenox plus coumadin. Patient was seen by PT and made good progress with ambulation and stairs. On the first post-operative day the patients H&H was 12.3/38.5. Patient was able to void spontaneously. At the time of discharge, patient was afebrile, wound was clean and dry. Patient is walking with a walker. DISPOSITION: The patient is discharged home with the support of her and will have outpatient PT in the next 1-2 weeks. Patient may progress to full weightbearing on the left lower extremity as tolerated. POLI stockings for 2 weeks during the day time. Lovenox 40 mg injections once daily for 4 days and Coumadin 5 mg once daily for 3 weeks. She will begin INR checks every Thursday and for 3 weeks beginning the Thursday after discharge. Patient has prescriptions for Celebrex, oxycodone for pain control. She may continue to take Tylenol as needed for pain. The patient will be seen by Dr. Hurst office in approximately 3 weeks. If there are any problems, patient is to call Dr. Hurst office.
--- NOTE | 2018-11-18 10:23 | ASMTLACE ---
MARIANE Length of stay for Answers: 2 days current admission Acuity / Level of Answers: No Care: Did the patient have an inpatient admission? Comorbidities - select Answers: Other Notes: Hx of DVT & PE all that apply # of Emergency department Answers: 0 visits in the last 6 months Social determinants Answers: Mental health diagnosis (anxiety, depression, pers onality disorders, etc.) Score: 6 Date Signed: 11/18/2018 10:22 AM Electronically Signed By:MARVIN Mistry
--- NOTE | 2018-11-18 13:09 | GOP ---
[f rep st] OPERATIVE REPORT DATE OF OPERATION: 11/17/2018 SURGEON: Lucas Hoffman MD [facility] TEACHER: Cris Neff P.A.-c ANESTHESIA: Spinal. PREOPERATIVE DIAGNOSIS: Left knee osteoarthritis. POSTOPERATIVE DIAGNOSIS: Left knee osteoarthritis. PROCEDURE PERFORMED: Left total knee arthroplasty with computer navigation, robotic assist. FINDINGS: ESTIMATED BLOOD LOSS: 30 cc. INDICATIONS: The patient is a 73-year-old female with severe and progressive pain and deformity of t he left knee unresponsive to conservative care. The risks and benefits of surgical intervention were explained in detail. DESCRIPTION OF PROCEDURE: The patient was brought to the operative room and placed on the table in t he supine position. Spinal anesthesia was induced without difficulty. A pneumatic tourniquet was appl ied about the left proximal thigh, and the leg was prepped and draped in a sterile fashion. The leg h older was applied. After exsanguination by elevation the tourniquet was inflated to 250 mmHg. Incision was made anterior medial from the tibial tuberosity to a point 2 cm proximal to the superior pole of the patella. Medial parapatellar arthrotomy was carried out from the superior pole of the pa tella and posteriorly in line with the fibers of the Type II VMO. The medial collateral ligament was elevated and the infrapatellar fat pad was resected. Pathology: Severe medial and patellofemoral osteoarthritis. The patella was everted and the articular surface was excised. A 32 mm patellar button was placed. Attention was turned first to the distal aspect of the femur. After exposure of the femur, 2 half pi ns were placed for fixation of the femoral array. In a similar fashion, 2 pins were placed anteromed ial on the tibia for fixation of the tibial array. External land marking and registration of the hip center was performed without difficulty. Internal femoral and tibial registration was carried out w ithout difficulty and the femoral and tibial checkpoints were placed and verified for accuracy. Attention was turned to the femur. The foot print for the size 3 femoral component was cut with the saw using the [employer] robotic system and verified for accuracy against the CT based plan. In a similar f ashion, the saw was used to cut the footprint for the size 4 tibial component using the [employer] system an d verified for accuracy against the CT based plan. The tibial articular surface was excised without d ifficulty, followed by the intercondylar box cut. The knee was extended and the remnants of the medial and lateral meniscus were excised. The posterior capsule was injected with ropivacaine, epinephrine and Toradol. A size 4 mm tibial tray was positio kavin. Trial reduction was then carried out. There was excellent range of motion, alignment, and stabil ity using the 4 x 9 mm polyethylene. All trials were then removed. The joint was thoroughly irrigated and carefully dried. The components were implanted. The permanent 4 x 9 mm polyethylene was placed without difficulty. The tourniquet was deflated and all bleeders were coagulated. The wound was thoroughly irrigated and closed using interrupted sutures of 2-0 Vicryl for the joint capsule. The subcu was closed with 3-0 V icryl and the skin with 4-0 Monocryl. Dermabond and Steri-Strips were applied followed by a compress joseph dressing. The patient was then moved from the operating room to the recovery room in good conditi on, having tolerated the procedure well. /[id number]/MODL
== END 2018-11-18 11:59 | disposition home or self-care (01) ==
LOC: F3N 07:56
PROVIDERS: ADMIT Orthopaedic Surgery; ATTEND Orthopaedic Surgery
DX: M17.12 Unilateral primary osteoarthritis, left knee (principal); D62 Acute posthemorrhagic anemia; Z86.718 Personal history of other venous thrombosis and embolism; Z96.651 Presence of right artificial knee joint
CPT/HCPCS: 27447; 73560; 88311; 97110; 97116; 97161; C1776; G0378; J0171; J0690; J1100; J1650; J1885; J2250; J2704; J2795; J3010